=== PATIENT | female | born 1975 | race Caucasian/White ===

== ENCOUNTER 2019-08-09 17:14 | Emergency (ER) | payer BC ==
[2019-08-09 17:24] VITALS: BP 120/78
--- NOTE | 2019-08-09 17:45 | ED ---
Head Injury - HPI Summary HPI Summary: 44-year-old female with a significant past medical history presents to the emergency department today status post mechanical fall for which she sustained a head injury. Patient states the fall occurred at approximately 0930 this afternoon. Patient endorses 4 out of 10 occipital headache, nausea, light sensitivity. Patient denies loss of consciousness or amnesia. Patient states her neck muscles hurt as well. Patient is full range of motion of the neck and has had 0 episodes of emesis. There is no obvious laceration, deformity, trauma. Patient has no neurological deficits. Patient otherwise feels well and denies fever, chest pain, abdominal pain, shortness breath, vomiting and diarrhea, rash. - History Of Current Complaint Chief Complaint: EDHeadInjury Stated Complaint: FALL/HEAD INJURY PER PT Time Seen by Provider: 08/09/19 17:25 Hx Obtained From: Patient Hx Last Menstrual Period: 2 WEEKS AGO Onset/Duration: Started Hours Ago Onset of Pain: Immediate Severity Currently: Moderate Severity Initially: Moderate Pain Intensity: 6 Pain Scale Used: 0-10 Numeric Location of Head Injury: Occipital Character: Aching Associated Signs And Symptoms: Neck Pain, Nausea, Headache - Allergies/Home Medications Allergies/Adverse Reactions: Allergies Allergy/AdvReac Type Severity Reaction Status Date / Time No Known Allergies Allergy Verified 05/12/16 17:39 Home Medications: Home Medications Ciprofloxacin TAB* [Cipro Tab*] 500 mg PO BID #14 tab 05/12/16 [Rx] PMH/Surg Hx/FS Hx/Imm Hx Endocrine/Hematology History: Denies: Hx Diabetes, Hx Systemic Lupus Erythematosus Cardiovascular History: Denies: Hx Hypertension, Hx Pacemaker/ICD History: Denies: Hx Dialysis, Hx Renal Disease Musculoskeletal History: Denies: Hx Rheumatoid Arthritis Sensory History: Denies: Hx Hearing Aid Psychiatric History: Denies: Hx Panic Disorder - Cancer History Hx Chemotherapy: No - Surgical History Surgery Procedure, Year, and Place: LAMINECTOMY L4-L5; LEEP Infectious Disease History: No Infectious Disease History: Denies: History Other Infectious Disease, Traveled Outside the [place] in Last 30 Days - Family History Known Family History: Positive: Cardiac Disease - MS, Diabetes - Social History Alcohol Use: Rare Substance Use Type: Reports: None Smoking Status (MU): Never Smoked Tobacco Review of Systems Constitutional: Negative Eyes: Negative ENT: Negative Cardiovascular: Negative Respiratory: Negative Positive: Nausea. Negative: Abdominal Pain, Vomiting, Diarrhea Genitourinary: Negative Musculoskeletal: Negative Skin: Negative Positive: Headache. Negative: Weakness, Paresthesia, Numbness, Syncope, Slurred Speech Psychological: Normal All Other Systems Reviewed And Are Negative: Yes Physical Exam - Summary Physical Exam Summary: Patient in no acute distress. Patient had no neurological deficits. PERRLA, EOMI, no cerebellar dysfunction. Finger to nose intact. [id number] intact. Speech intact. No diminished sensation throughout. Patient has full range of motion of the cervical spine, lumbar spine. Negative Spurling test. Triage Information Reviewed: Yes Vital Signs On Initial Exam: Initial Vitals Temp Pulse Resp BP Pulse Ox 98.3 F 88 19 120/78 100 08/09/19 17:19 08/09/19 17:19 08/09/19 17:19 08/09/19 17:19 08/09/19 17:19 Vital Signs Reviewed: Yes Appearance: Positive: Well-Appearing, No Pain Distress, Well-Nourished Skin: Positive: Warm, Skin Color Reflects Adequate Perfusion Eyes: Positive: EOMI, HAN[place]H ENT: Positive: Hearing grossly normal Respiratory/Lung Sounds: Positive: Clear to Auscultation, Breath Sounds Present Cardiovascular: Positive: RRR, S1, S2 Abdomen Description: Positive: Nontender, Soft Bowel Sounds: Positive: Present Musculoskeletal: Positive: Strength/ROM Intact Neurological: Positive: Sensory/Motor Intact, Alert, Oriented to Person Place, Time, Normal Gait, Facial Symmetry, Speech Normal Psychiatric: Positive: Normal, Affect/Mood Appropriate AVPU Assessment: Alert Procedures - Sedation Patient Received Moderate/Deep Sedation with Procedure: No Diagnostics - Vital Signs Vital Signs Temp Pulse Resp BP Pulse Ox 08/09/19 17:19 98.3 F 88 19 120/78 100 - Laboratory Lab Statement: Any lab studies that have been ordered have been reviewed, and results considered in the medical decision making process. Head Injury Course/Dx Course Of Treatment: Patient was evaluated in the emergency department today for headache after fall. Patient not on anticoagulation. Vitals noted. Patient had no neurological deficits with no loss of consciousness. [place] head CT rules suggest risks of CT imaging at this point outweigh benefits. Patient likely sustained mild concussion with cervical muscle strain. No evidence of significant neurological trauma. Patient discharged with outpatient follow-up. - Diagnoses Differential Diagnosis/HQI/PQRI: Cerebral Contusion, Cervical Sprain, Concussion Without LOC, Orbital Fracture Provider Diagnoses: Cervical muscle strain, Headache Discharge ED - Sign-Out/Discharge Documenting (check all that apply): Patient Departure - Discharge Plan Condition: Stable Disposition: HOME Patient Education Materials: Head Injury (ED) Referrals: Anirudh Levine MD [Primary Care Provider] - 3 Days Additional Instructions: Brain rest is important after diagnosis of concussion. Please read below. Rest is very important after a concussion because it helps the brain to heal. Ignoring your symptoms and trying to tough it out often makes symptoms worse. Be patient because healing takes time. Only when your symptoms have reduced significantly, in consultation with your health residential child care counselor, should you slowly and gradually return to your daily activities, such as work or school. If your symptoms come back or you get new symptoms as you become more active, this is a sign that you are pushing yourself too hard. Stop these activities and take more time to rest and recover. As the days go by, you can expect to gradually feel better. Getting Better: Tips * Get plenty of sleep at night, and rest during the day. * Avoid activities that are physically demanding (e.g., heavy house cleaning, weightlifting/working-out) or require a lot of concentration (e.g., balancing your checkbook). They can make your symptoms worse and slow your recovery. * Avoid activities such as contact or recreational sports, that could lead to another concussion. (It is best to avoid roller coasters or other high speed rides that can make your symptoms worse or even cause a concussion.) * When your health residential child care counselor says you are well enough, return to your normal activities gradually, not all at once. * Because your ability to react may be slower after a concussion, ask your health residential child care counselor when you can safely drive a car, ride a bike, or operate heavy equipment. * Talk with your health residential child care counselor about when you can return to work. Ask about how you can help your employer understand what has happened to you. * Consider talking with your employer about returning to work gradually and about changing your work activities or schedule until you recover (e.g., work half-days). * Take only those drugs that your health residential child care counselor has approved. * Do not drink alcoholic beverages until your health residential child care counselor says you are well enough. Alcohol and other drugs may slow your recovery and put you at risk of further injury. * Consult with family members or close friends when making important decisions. * Avoid sustained computer use, including computer/video games early in the recovery process. * Some people report that flying in airplanes makes their symptoms worse shortly after a concussion. Please return to this emergency department if you develop any new or worsening symptoms. Please follow up with your primary care provider in 3 to 5 days for further evaluation and management. - Billing Disposition and Condition Condition: STABLE Disposition: Home - Attestation Statements Provider Attestation: I was available for consult. This patient was seen by the STEVE. The patient was not presented to, seen by, or examined by me. Yoseph Ferguson MD
== END 2019-08-09 17:54 | disposition home or self-care (01) ==
LOC: ED 17:14
DX: S16.1XXA Strain of muscle, fascia and tendon at neck level, initial encounter (principal); R51 Headache; M54.2 Cervicalgia; R11.0 Nausea; W19.XXXA Unspecified fall, initial encounter; Y92.9 Unspecified place or not applicable
CPT/HCPCS: 99281